=== PATIENT | male | born 1945 | race Caucasian/White ===

== ENCOUNTER 2021-02-24 16:40 | Inpatient (IN) ==
[2021-02-24] MEDS ORDERED: Acetaminophen 325 MG TABLET PO PRN (18:53)
[2021-02-24] MEDS ORDERED: Melatonin 3 MG TABLET PO PRN (18:53)
[2021-02-24] MEDS ORDERED: Ondansetron 4 MG/2 ML VIAL IVP PRN (18:53)
[2021-02-24] MEDS ORDERED: Naloxone 0.4 MG/ML INJ IVP PRN (18:53)
[2021-02-24] MEDS ORDERED: *HR* Promethazine 25 MG/ML VIAL IM PRN (18:53)
[2021-02-24] MEDS ORDERED: Perflutren Lipid Microsphere 1.3 ML in 0.9 % Sodium Chloride 8.7 ML IVP PRN (21:02)
[2021-02-24] MEDS ORDERED: tiZANidine 4 MG TABLET PO PRN (21:26)
[2021-02-24] MEDS ORDERED: Dextrose Gel 15 GM/37.5 ML TUBE PO PRN ×2 (22:05)
[2021-02-24] MEDS ORDERED: D5% in Water 1,000 ML IVC PRN (22:05)
[2021-02-24] MEDS ORDERED: *HR* Dextrose 50 % in Water (Syg) 50 ML SYRINGE IVP PRN (22:05)
[2021-02-24] MEDS: Insulin LISPRO 300 UNITS/3 ML VIAL SUBQ SCH (22:29)
[2021-02-24] MEDS: *HR* HYDROcodone/Acet 5/325 mg TABLET PO PRN (22:34)
[2021-02-24] MEDS ORDERED: Pantoprazole 40 MG VIAL IVP ONE (22:46)
[2021-02-25 03:18] LABS: Bilirubin,Urine Negative (Negative); Blood,Urine Negative (Negative); Clarity,Urine Clear (Clear); Color,Urine Light-Yellow (Yellow); Glucose,Urine (UA) >=1000 mg/dL (Normal); Hyaline Casts,Urine Few per lpf (None Seen); Ketones,Urine Negative (Negative); Leukocyte Esterase,Urine Negative (Negative); Mucus,Urine Few per lpf (None-Few); Nitrite,Urine Negative (Negative); Protein,Urine Trace mg/dL (Neg-Trace); RBC,Urine 0-3 per hpf (0-3); Specific Gravity,Urine > 1.030 (1.010-1.025); Squamous Epithelial Cell,Urine Few per hpf (None-Few); Urobilinogen,Urine Normal (Normal)
[2021-02-25] MEDS: Insulin LISPRO 300 UNITS/3 ML VIAL SUBQ SCH ×2 (05:50→12:21)
[2021-02-25] MEDS: *HR* OxyCODONE Immed Rel 5 MG TABLET PO PRN (05:53)
[2021-02-25 07:43] LABS: Basophils % 0.3 %; Eosinophils # 0.4 K/mcL (0.0-0.6); Eosinophils % 3.6 %; Hematocrit 49.2 % (37.5-50.1); Immature Granulocytes % 0.3 % (0-4); Lymphocytes # 1.3 K/mcL (0.6-4.6); Lymphocytes % 13.1 %; Mean Corpuscular HGB Conc 32.5 g/dL (31.6-35.5); Mean Corpuscular Hemoglobin 32.5 pg (28.0-33.3); Mean Platelet Volume 12.5 fL (9.4-12.4); Monocytes # 0.7 K/mcL (0.0-1.3); Monocytes % 7.7 %; Neutrophils # 7.2 K/mcL (1.6-8.9); Platelet Count 153 K/mcL (140-400); Red Blood Count 4.92 M/mcL (4.19-5.50); Red Cell Distribution Width 12.9 % (11.5-14.5); White Blood Count 9.6 K/mcL (4.3-11.1)
[2021-02-25 07:48] LABS: Prothrombin Time 11.1 Seconds (9.4-12.1)
[2021-02-25 07:49] LABS: Activated Partial Thrombo Time 31.9 Seconds (26.0-36.0)
[2021-02-25 08:08] LABS: BUN/Creatinine Ratio 24 (6-26); Blood Urea Nitrogen 22 mg/dL (8-23); Calcium 9.3 mg/dL (8.6-10.3); Carbon Dioxide 23 mEq/L (23-29); Chloride 109 mEq/L (98-107); Chol/HDL Ratio 3.4 (0-4.9); Cholesterol 139 mg/dL (< 200); Glucose 167 mg/dL (70-105); HDL Cholesterol 41 mg/dL (40-59); LDL Cholesterol,Calculated 78 mg/dL (< 100); Magnesium 2.2 mg/dL (1.6-2.6); Osmolality,Calculated 297 (280-300); Sodium 140 mEq/L (136-145); Triglycerides 99 mg/dL (< 150); Troponin I 0.05 ng/mL (< 0.04); eGFR For African Americans > 60 (> 60); eGFR For Non-African Americans > 60 (> 60)
[2021-02-25] MEDS: Pantoprazole 40 MG VIAL IVP SCH (08:55)
[2021-02-25 10:15] LABS: Estimated Average Glucose 206 mg/dl; Hemoglobin A1C 8.8 %
[2021-02-25] MEDS ORDERED: *HR* FentaNYL (PF) 100 MCG/2 ML VIAL IVP PRN (13:19)
[2021-02-25] MEDS ORDERED: *HR* HYDROmorphone PF 0.5 MG/0.5 ML SYRINGE IVP PRN (13:19)
[2021-02-25] MEDS ORDERED: Vancomycin 1,000 MG VIAL ONE ×2 (13:20→15:59)
[2021-02-25] MEDS ORDERED: Ondansetron 4 MG/2 ML VIAL ONE (14:10)
[2021-02-25] MEDS ORDERED: *HR* Succinylcholine 200 MG/10 ML VIAL IVP ONE (14:10)
[2021-02-25] MEDS ORDERED: *HR* Midazolam HCl 2 MG/2 ML VIAL ONE (14:10)
[2021-02-25] MEDS ORDERED: *HR* Propofol 200 MG/20 ML VIAL IVP ONE (14:10)
[2021-02-25] MEDS ORDERED: Lidocaine -MPF 2% 5 ML VIAL ONE (14:10)
[2021-02-25] MEDS ORDERED: Lidocaine HCL 4 ML Topical Solution (Laryng-O-Jet Kit Sterile Pak) TP ONE (14:10)
[2021-02-25] MEDS ORDERED: *HR* FentaNYL (PF) 100 MCG/2 ML VIAL ONE (14:10)
[2021-02-25] MEDS ORDERED: *HR* HYDROMORPHONE 2 MG/ML VIAL ONE (16:24)
[2021-02-25] MEDS ORDERED: *HR* Promethazine 25 MG/ML VIAL IM PRN (16:40)
[2021-02-25] MEDS ORDERED: Naloxone 0.4 MG/ML INJ IVP PRN (16:40)
[2021-02-25] MEDS ORDERED: Sennosides 8.6 MG TABLET PO PRN (16:40)
[2021-02-25] MEDS ORDERED: Ondansetron 4 MG/2 ML VIAL IVP PRN (16:40)
[2021-02-25] MEDS ORDERED: MOM Conc 10 ML UD.LIQ PO PRN (16:40)
[2021-02-25] MEDS ORDERED: Ipratropium/Albuterol Neb 3 ML IH ONE (16:59)
[2021-02-25] MEDS ORDERED: Ipratropium/Albuterol Neb 3 ML ONE (17:03)
[2021-02-25] MEDS: Ascorbic Acid 500 MG TABLET PO SCH (20:01)
[2021-02-25 20:48] LABS: Hematocrit 49.1 % (37.5-50.1); Hemoglobin 15.6 g/dL (12.9-16.9)
[2021-02-26] MEDS: Aspirin Enteric Coated 81 MG Tablet PO SCH ×3 (00:02→20:53)
[2021-02-26] MEDS: Insulin LISPRO 300 UNITS/3 ML VIAL SUBQ SCH ×6 (00:26→23:53)
[2021-02-26] MEDS: CeFAZolin 2 GM/120 ML BAG IVPB SCH ×2 (00:38→09:47)
[2021-02-26] MEDS: *HR* HYDROcodone/Acet 5/325 mg TABLET PO PRN (06:52)
[2021-02-26 07:23] LABS: Basophils % 0.2 %; Eosinophils % 0.1 %; Hematocrit 48.3 % (37.5-50.1); Hemoglobin 15.5 g/dL (12.9-16.9); Immature Granulocytes % 0.5 % (0-4); Lymphocytes # 1.1 K/mcL (0.6-4.6); Lymphocytes % 8.8 %; Mean Corpuscular HGB Conc 32.1 g/dL (31.6-35.5); Mean Corpuscular Hemoglobin 32.6 pg (28.0-33.3); Mean Corpuscular Volume 101.5 fL (83.0-100.0); Mean Platelet Volume 12.3 fL (9.4-12.4); Monocytes % 8.5 %; Neutrophils # 9.9 K/mcL (1.6-8.9); Platelet Count 164 K/mcL (140-400); Red Blood Count 4.76 M/mcL (4.19-5.50); Segmented Neutrophils % 81.9 %
[2021-02-26 07:40] LABS: BUN/Creatinine Ratio 23 (6-26); Blood Urea Nitrogen 27 mg/dL (8-23); Calcium 9.1 mg/dL (8.6-10.3); Carbon Dioxide 23 mEq/L (23-29); Chloride 106 mEq/L (98-107); Glucose 181 mg/dL (70-105); Osmolality,Calculated 292 (280-300); Potassium 4.6 mEq/L (3.5-5.1); Sodium 136 mEq/L (136-145); eGFR For African Americans > 60 (> 60); eGFR For Non-African Americans > 60 (> 60)
[2021-02-26] MEDS: Multivit/Ca/Min/Fe/FA 1 TAB TABLET PO SCH (09:20)
[2021-02-26] MEDS: Pantoprazole 40 MG VIAL IVP SCH (09:20)
[2021-02-26] MEDS: Ascorbic Acid 500 MG TABLET PO SCH ×2 (09:20→16:16)
[2021-02-26] MEDS: *HR* OxyCODONE Immed Rel 5 MG TABLET PO PRN (10:28)
[2021-02-26] MEDS: Ringers Solution, Lactated 1,000 ML IVC SCH (11:21)
[2021-02-27] MEDS: Insulin LISPRO 300 UNITS/3 ML VIAL SUBQ SCH ×3 (06:33→17:51)
[2021-02-27 07:43] LABS: Basophils % 0.3 %; Eosinophils # 0.3 K/mcL (0.0-0.6); Eosinophils % 2.5 %; Hematocrit 42.8 % (37.5-50.1); Immature Granulocytes % 0.4 % (0-4); Lymphocytes # 1.5 K/mcL (0.6-4.6); Lymphocytes % 14.4 %; Mean Corpuscular HGB Conc 32.7 g/dL (31.6-35.5); Mean Corpuscular Hemoglobin 33.2 pg (28.0-33.3); Mean Corpuscular Volume 101.4 fL (83.0-100.0); Mean Platelet Volume 12.6 fL (9.4-12.4); Monocytes # 0.9 K/mcL (0.0-1.3); Monocytes % 9.1 %; Neutrophils # 7.6 K/mcL (1.6-8.9); Platelet Count 146 K/mcL (140-400); Red Blood Count 4.22 M/mcL (4.19-5.50); Red Cell Distribution Width 13.2 % (11.5-14.5); Segmented Neutrophils % 73.3 %; White Blood Count 10.4 K/mcL (4.3-11.1)
[2021-02-27 08:02] LABS: BUN/Creatinine Ratio 27 (6-26); Blood Urea Nitrogen 29 mg/dL (8-23); Carbon Dioxide 22 mEq/L (23-29); Chloride 107 mEq/L (98-107); Glucose 182 mg/dL (70-105); Osmolality,Calculated 294 (280-300); Potassium 4.3 mEq/L (3.5-5.1); Sodium 137 mEq/L (136-145); eGFR For African Americans > 60 (> 60); eGFR For Non-African Americans > 60 (> 60)
[2021-02-27] MEDS ORDERED: Insulin DETEMIR 100 UNIT/ML X5UNITS SUBQ ONE (11:33)
[2021-02-27] MEDS ORDERED: Nitroglycerin 0.4 MG TAB.SUBL SL PRN (11:35)
[2021-02-27] MEDS: Ascorbic Acid 500 MG TABLET PO SCH ×2 (12:36→17:51)
[2021-02-27] MEDS: Aspirin Enteric Coated 81 MG Tablet PO SCH ×2 (12:36→19:52)
[2021-02-27] MEDS: Multivit/Ca/Min/Fe/FA 1 TAB TABLET PO SCH (17:51)
[2021-02-27] MEDS: carvediloL 6.25 MG TABLET PO SCH (17:51)
[2021-02-28] MEDS: Insulin LISPRO 300 UNITS/3 ML VIAL SUBQ SCH ×4 (00:15→17:06)
[2021-02-28 03:41] LABS: Basophils % 0.2 %; Eosinophils # 0.4 K/mcL (0.0-0.6); Eosinophils % 4.2 %; Hematocrit 41.4 % (37.5-50.1); Hemoglobin 13.5 g/dL (12.9-16.9); Immature Granulocytes % 0.7 % (0-4); Lymphocytes # 1.5 K/mcL (0.6-4.6); Lymphocytes % 17.2 %; Mean Corpuscular HGB Conc 32.6 g/dL (31.6-35.5); Mean Corpuscular Hemoglobin 32.5 pg (28.0-33.3); Mean Corpuscular Volume 99.8 fL (83.0-100.0); Mean Platelet Volume 12.5 fL (9.4-12.4); Monocytes # 0.9 K/mcL (0.0-1.3); Monocytes % 10.6 %; Neutrophils # 5.8 K/mcL (1.6-8.9); Platelet Count 149 K/mcL (140-400); Red Blood Count 4.15 M/mcL (4.19-5.50); Red Cell Distribution Width 13.2 % (11.5-14.5); Segmented Neutrophils % 67.1 %; White Blood Count 8.6 K/mcL (4.3-11.1)
[2021-02-28 03:57] LABS: BUN/Creatinine Ratio 30 (6-26); Blood Urea Nitrogen 25 mg/dL (8-23); Calcium 8.8 mg/dL (8.6-10.3); Carbon Dioxide 23 mEq/L (23-29); Chloride 109 mEq/L (98-107); Glucose 150 mg/dL (70-105); Osmolality,Calculated 293 (280-300); Potassium 3.9 mEq/L (3.5-5.1); Sodium 138 mEq/L (136-145); eGFR For African Americans > 60 (> 60); eGFR For Non-African Americans > 60 (> 60)
[2021-02-28] MEDS: *HR* OxyCODONE Immed Rel 5 MG TABLET PO PRN (05:46)
[2021-02-28] MEDS: carvediloL 6.25 MG TABLET PO SCH ×2 (08:43→16:42)
[2021-02-28] MEDS: amLODIPine 5 MG TABLET PO SCH (08:43)
[2021-02-28] MEDS: Ascorbic Acid 500 MG TABLET PO SCH ×2 (08:44→17:04)
[2021-02-28] MEDS: Isosorbide MONOnitrate (24 HR) 30 MG TAB.ER.24H PO SCH (08:44)
[2021-02-28] MEDS: Aspirin Enteric Coated 81 MG Tablet PO SCH ×2 (08:44→19:28)
[2021-02-28] MEDS: Multivit/Ca/Min/Fe/FA 1 TAB TABLET PO SCH (08:44)
[2021-02-28] MEDS ORDERED: Aspirin Enteric Coated 81 MG Tablet PO SCH (09:00)
[2021-03-01] MEDS: Insulin LISPRO 300 UNITS/3 ML VIAL SUBQ SCH ×3 (00:14→12:34)
[2021-03-01 07:16] LABS: Basophils # 0.1 K/mcL (0.0-0.2); Basophils % 0.7 %; Eosinophils # 0.4 K/mcL (0.0-0.6); Eosinophils % 5.2 %; Hematocrit 42.4 % (37.5-50.1); Immature Granulocytes % 1.1 % (0-4); Lymphocytes # 1.6 K/mcL (0.6-4.6); Lymphocytes % 22.1 %; Mean Corpuscular Hemoglobin 33.2 pg (28.0-33.3); Mean Corpuscular Volume 100.5 fL (83.0-100.0); Monocytes # 0.7 K/mcL (0.0-1.3); Monocytes % 9.3 %; Neutrophils # 4.5 K/mcL (1.6-8.9); Platelet Count 161 K/mcL (140-400); Red Blood Count 4.22 M/mcL (4.19-5.50); Red Cell Distribution Width 12.9 % (11.5-14.5); Segmented Neutrophils % 61.6 %; White Blood Count 7.3 K/mcL (4.3-11.1)
[2021-03-01 07:23] VITALS: TEMP 98.5
[2021-03-01 07:34] LABS: BUN/Creatinine Ratio 31 (6-26); Blood Urea Nitrogen 32 mg/dL (8-23); Calcium 8.9 mg/dL (8.6-10.3); Carbon Dioxide 23 mEq/L (23-29); Chloride 107 mEq/L (98-107); Glucose 173 mg/dL (70-105); Osmolality,Calculated 295 (280-300); Potassium 3.9 mEq/L (3.5-5.1); Sodium 137 mEq/L (136-145); eGFR For African Americans > 60 (> 60); eGFR For Non-African Americans > 60 (> 60)
[2021-03-01] MEDS: Aspirin Enteric Coated 81 MG Tablet PO SCH (08:40)
[2021-03-01] MEDS: Isosorbide MONOnitrate (24 HR) 30 MG TAB.ER.24H PO SCH (08:41)
[2021-03-01] MEDS: carvediloL 6.25 MG TABLET PO SCH (08:41)
[2021-03-01] MEDS: amLODIPine 5 MG TABLET PO SCH (08:41)
[2021-03-01] MEDS: Ascorbic Acid 500 MG TABLET PO SCH (08:41)
[2021-03-01] MEDS: Multivit/Ca/Min/Fe/FA 1 TAB TABLET PO SCH (08:41)
[2021-03-01 08:59] VITALS: BP 147/70; PULSE 60; O2SAT 95
== END 2021-03-01 14:52 | disposition home or self-care (01) | DRG 522 ==
LOC: 3ANU → SUATTDRO 21:25 → 4WAOSI 02-25 13:40
PROVIDERS: ADMIT Internal Medicine; ATTEND Student in an Organized Health Care Education/Training Program